=== PATIENT | male | born 1975 | race Caucasian/White ===

== ENCOUNTER 2017-04-18 20:04 | Emergency (ER) | payer MEDICAID ==
[~2017-04-18] VITALS: Ht 195.6 cm; Wt 63.6 kg
[~2017-04-18 20:04] MED LIST: ATEN-187 PO
[2017-04-18] MEDS ORDERED: LIB25 PO (20:17)
[2017-04-18] MEDS ORDERED: PROM25 PO (20:17)
[2017-04-18 20:49] LABS: BASOPHILS % (AUTO) 0.7 % (0.0-2.0); EOSINOPHILS % (AUTO) 0.5 % (1.0-6.0); HEMATOCRIT 44.9 % (41-53); HEMOGLOBIN 15.4 g/dL (13.5-17.5); LYMPHOCYTES # (AUTO) 2.5 K/uL (1.0-4.8); LYMPHOCYTES % (AUTO) 36.7 % (22.0-44.0); MEAN CORPUSCULAR HEMOGLOBIN 33.9 pg (26.0-34.0); MEAN CORPUSCULAR HGB CONC 34.3 G/dL (31.0-37.0); MEAN CORPUSCULAR VOLUME 99 fL (80-100); MONOCYTES # (AUTO) 0.6 K/uL (0.1-1.0); NEUTROPHILS # (AUTO) 3.6 K/uL (1.8-7.7); NEUTROPHILS % (AUTO) 53.1 % (40.0-70.0); PLATELET COUNT (AUTO) 275 K/uL (150-450); RED BLOOD CELL COUNT(AUTO) 4.55 MIL/uL (4.50-5.90); RED CELL DISTRIBUTION WIDTH 15.4 % (11.5-14.5); WHITE BLOOD COUNT (AUTO) 6.9 K/uL (4.5-11.0)
[2017-04-18 20:55] LABS: ANION GAP 10 mmol/L (8-16); CALCIUM, TOTAL 8.4 mg/dL (8.8-10.5); CARBON DIOXIDE 32 mmol/L (22-29); CHLORIDE 106 mmol/L (98-107); CREATININE 0.72 mg/dL (0.60-1.30); GLOMERULAR FILTR. RATE CALC > 60 mL/min (>60); POTASSIUM 3.8 mmol/L (3.5-5.1); SODIUM SERUM 148 mmol/L (136-145); UREA NITROGEN, BLOOD 2 mg/dL (7-18)
[2017-04-18] MEDS ORDERED: MAGNESIUM SULFATE 2 GM, MVI, ADULT NO.1 WITH VIT K 10 ML, THIAMINE HCL 100 MG, FOLIC AC... IV ONE ×5 (21:00)
[2017-04-18] MEDS ORDERED: ChlordiazePOXIDE HCL 25 MG CAPSULE PO ONE (21:00)
[2017-04-18 21:01] LABS: ALANINE AMINOTRANSFERASE 64 U/L (12-78); ALBUMIN 3.7 g/dL (3.4-5.0); ASPARTATE AMINOTRANSFERASE 57 U/L (15-37); BILIRUBIN,TOTAL 0.5 mg/dL (0.1-1.0); TOTAL PROTEIN, SERUM 7.2 g/dL (6.4-8.2)
[2017-04-18 21:56] VITALS: BP 134/94
== END 2017-04-18 22:36 | disposition home or self-care (01) ==
LOC: EMS 20:05
DX: F10.129 Alcohol abuse with intoxication, unspecified (principal); I10 Essential (primary) hypertension; I45.6 Pre-excitation syndrome; F17.210 Nicotine dependence, cigarettes, uncomplicated
CPT/HCPCS: 36415; 80053; 85025; 96365; 99284; G0480; J3411; J3475; J3490 ×2; J7030

== ENCOUNTER 2017-04-19 19:04 | Emergency (ER) | payer MEDICAID ==
[~2017-04-19] VITALS: Ht 195.6 cm; Wt 68.2 kg
[~2017-04-19 19:04] MED LIST changes: +LIB25 PO; +PROM25 PO
[2017-04-19 20:31] LABS: BASOPHILS % (AUTO) 0.3 % (0.0-2.0); EOSINOPHILS % (AUTO) 0.7 % (1.0-6.0); HEMATOCRIT 40.3 % (41-53); HEMOGLOBIN 13.9 g/dL (13.5-17.5); LYMPHOCYTES # (AUTO) 1.1 K/uL (1.0-4.8); LYMPHOCYTES % (AUTO) 19.9 % (22.0-44.0); MEAN CORPUSCULAR HEMOGLOBIN 34.2 pg (26.0-34.0); MEAN CORPUSCULAR HGB CONC 34.4 G/dL (31.0-37.0); MEAN CORPUSCULAR VOLUME 99 fL (80-100); MONOCYTES # (AUTO) 0.5 K/uL (0.1-1.0); MONOCYTES % (AUTO) 8.5 % (2.0-9.0); NEUTROPHILS % (AUTO) 70.6 % (40.0-70.0); PLATELET COUNT (AUTO) 211 K/uL (150-450); RED BLOOD CELL COUNT(AUTO) 4.06 MIL/uL (4.50-5.90); RED CELL DISTRIBUTION WIDTH 14.5 % (11.5-14.5); WHITE BLOOD COUNT (AUTO) 5.7 K/uL (4.5-11.0)
[2017-04-19 20:40] LABS: ANION GAP 8 mmol/L (8-16); CALCIUM, TOTAL 8.9 mg/dL (8.8-10.5); CARBON DIOXIDE 30 mmol/L (22-29); CHLORIDE 105 mmol/L (98-107); CREATININE 0.64 mg/dL (0.60-1.30); GLOMERULAR FILTR. RATE CALC > 60 mL/min (>60); POTASSIUM 3.5 mmol/L (3.5-5.1); SODIUM SERUM 143 mmol/L (136-145); UREA NITROGEN, BLOOD 3 mg/dL (7-18)
[2017-04-19] MEDS ORDERED: PHENobarbital 30 MG TABLET PO ONE (20:45)
[2017-04-19 20:47] VITALS: BP 132/93
[2017-04-19 20:47] LABS: ALANINE AMINOTRANSFERASE 59 U/L (12-78); ALBUMIN 3.5 g/dL (3.4-5.0); ASPARTATE AMINOTRANSFERASE 43 U/L (15-37); BILIRUBIN,TOTAL 0.8 mg/dL (0.1-1.0); TOTAL PROTEIN, SERUM 6.8 g/dL (6.4-8.2)
== END 2017-04-19 21:11 | disposition home or self-care (01) ==
LOC: EMS 19:05
DX: F10.239 Alcohol dependence with withdrawal, unspecified (principal); I10 Essential (primary) hypertension; I45.6 Pre-excitation syndrome; F17.210 Nicotine dependence, cigarettes, uncomplicated
CPT/HCPCS: 36415; 80053; 85025; 93005; 99285; G0480

== ENCOUNTER 2017-04-20 17:02 | Inpatient (IN) | payer MEDICAID ==
[~2017-04-20] VITALS: Ht 190.5 cm; Wt 78.3 kg
[~2017-04-20 17:02] MED LIST changes: -ATEN-187 PO; -PROM25 PO
[2017-04-20 17:29] LABS: BASOPHILS % (AUTO) 0.4 % (0.0-2.0); EOSINOPHILS % (AUTO) 0.6 % (1.0-6.0); HEMATOCRIT 46.4 % (41-53); HEMOGLOBIN 16.1 g/dL (13.5-17.5); LYMPHOCYTES # (AUTO) 1.2 K/uL (1.0-4.8); LYMPHOCYTES % (AUTO) 16.1 % (22.0-44.0); MEAN CORPUSCULAR HEMOGLOBIN 34.2 pg (26.0-34.0); MEAN CORPUSCULAR HGB CONC 34.6 G/dL (31.0-37.0); MEAN CORPUSCULAR VOLUME 99 fL (80-100); MONOCYTES # (AUTO) 0.5 K/uL (0.1-1.0); MONOCYTES % (AUTO) 6.3 % (2.0-9.0); NEUTROPHILS # (AUTO) 5.8 K/uL (1.8-7.7); NEUTROPHILS % (AUTO) 76.6 % (40.0-70.0); PLATELET COUNT (AUTO) 259 K/uL (150-450); RED CELL DISTRIBUTION WIDTH 14.4 % (11.5-14.5); WHITE BLOOD COUNT (AUTO) 7.5 K/uL (4.5-11.0)
[2017-04-20 17:52] LABS: ALANINE AMINOTRANSFERASE 71 U/L (12-78); ALBUMIN 4.1 g/dL (3.4-5.0); ANION GAP 12 mmol/L (8-16); ASPARTATE AMINOTRANSFERASE 51 U/L (15-37); BILIRUBIN,TOTAL 0.9 mg/dL (0.1-1.0); CALCIUM, TOTAL 8.9 mg/dL (8.8-10.5); CARBON DIOXIDE 28 mmol/L (22-29); CHLORIDE 101 mmol/L (98-107); CREATININE 0.81 mg/dL (0.60-1.30); GLOMERULAR FILTR. RATE CALC > 60 mL/min (>60); POTASSIUM 3.5 mmol/L (3.5-5.1); SODIUM SERUM 141 mmol/L (136-145); TOTAL PROTEIN, SERUM 8.1 g/dL (6.4-8.2); UREA NITROGEN, BLOOD 5 mg/dL (7-18)
[2017-04-20] MEDS ORDERED: LORazepam 2 MG TABLET PO ONE (19:00)
[2017-04-20] MEDS: LORazepam 2 MG TABLET PO PRN (23:22)
[2017-04-21] MEDS: ZOLPIDEM TARTRATE 10 MG TABLET PO PRN ×2 (00:39→21:26)
[2017-04-21] MEDS: LORazepam 2 MG TABLET PO PRN ×4 (06:26→23:25)
[2017-04-21 09:30] LABS: CHOL/HDL RATIO 1.9 (4.2-7.3)
[2017-04-21] MEDS: HALOPERIDOL 5 MG TABLET PO PRN ×2 (09:37→17:17)
[2017-04-21 11:15] VITALS: BP 123/82
[2017-04-21 20:15] VITALS: BP 116/64
[2017-04-22] MEDS: HALOPERIDOL 5 MG TABLET PO PRN ×3 (00:29→20:18)
[2017-04-22 00:45] VITALS: BP 120/78
[2017-04-22] MEDS ORDERED: INFLUENZA VIRUS VACCINE QVS 2017-18 (3YR+)/PF 60 MCG/0.5 ML SYRINGE IM ONE (03:00)
[2017-04-22 08:25] VITALS: BP 125/76
[2017-04-22] MEDS: SERTRALINE HCL 50 MG TABLET PO SCH (08:27)
[2017-04-22] MEDS: LORazepam 2 MG TABLET PO PRN ×4 (08:34→23:56)
[2017-04-22] MEDS ORDERED: ACETAMINOPHEN 325 MG TABLET PO PRN (12:45)
[2017-04-22 12:58] VITALS: BP 115/68
[2017-04-22] MEDS: IBUPROFEN 600 MG TABLET PO PRN (12:58)
[2017-04-22] MEDS: NICOTINE 21 MG/24 HOUR PATCH TD SCH (13:00)
[2017-04-22 16:36] VITALS: BP 122/89
[2017-04-22] MEDS: ZOLPIDEM TARTRATE 10 MG TABLET PO PRN (20:18)
[2017-04-23 00:21] VITALS: BP 115/82
[2017-04-23] MEDS: IBUPROFEN 600 MG TABLET PO PRN ×2 (00:21→15:45)
[2017-04-23] MEDS: LORazepam 2 MG TABLET PO PRN ×3 (07:25→16:30)
[2017-04-23] MEDS: HALOPERIDOL 5 MG TABLET PO PRN ×3 (07:25→16:30)
[2017-04-23 08:00] VITALS: BP 124/77
[2017-04-23] MEDS: SERTRALINE HCL 50 MG TABLET PO SCH (08:04)
[2017-04-23] MEDS: NICOTINE 21 MG/24 HOUR PATCH TD SCH (08:04)
[2017-04-23 12:30] VITALS: BP 130/82
[2017-04-23 15:46] VITALS: BP 121/78
[2017-04-23 16:06] VITALS: BP 121/78
[2017-04-23] MEDS: ZOLPIDEM TARTRATE 10 MG TABLET PO PRN (20:25)
[2017-04-24 00:01] VITALS: BP 131/96
[2017-04-24] MEDS: LORazepam 2 MG TABLET PO PRN ×4 (00:03→17:38)
[2017-04-24] MEDS: SERTRALINE HCL 50 MG TABLET PO SCH (08:34)
[2017-04-24] MEDS: HALOPERIDOL 5 MG TABLET PO PRN ×3 (08:36→23:36)
[2017-04-24] MEDS: NICOTINE 21 MG/24 HOUR PATCH TD SCH (08:38)
[2017-04-24 09:25] VITALS: BP 127/78
[2017-04-24 17:09] VITALS: BP 124/68
[2017-04-24] MEDS: ZOLPIDEM TARTRATE 10 MG TABLET PO PRN (23:36)
[2017-04-25] VITALS (8 sets, daily range): BP systolic 109–141; BP diastolic 62–96
[2017-04-25] MEDS: LORazepam 2 MG TABLET PO PRN ×6 (00:51→22:46)
[2017-04-25] MEDS: SERTRALINE HCL 50 MG TABLET PO SCH (08:18)
[2017-04-25] MEDS: NICOTINE 21 MG/24 HOUR PATCH TD SCH (08:23)
[2017-04-25] MEDS: HALOPERIDOL 5 MG TABLET PO PRN ×3 (08:40→19:31)
[2017-04-25] MEDS: IBUPROFEN 600 MG TABLET PO PRN (15:58)
[2017-04-25] MEDS ORDERED: LORazepam 2 MG/ML VIAL IM ONE (16:30)
[2017-04-25] MEDS ORDERED: LORazepam 2 MG/ML VIAL ONE (16:31)
[2017-04-25] MEDS ORDERED: LOPERAMIDE HCL 2 MG CAPSULE PO PRN (16:45)
[2017-04-25] MEDS ORDERED: GuaiFENesin/D-METHORPHAN [SUGAR-FREE] 200-20MG/10 ML SYRUP UDCUP PO PRN (16:45)
[2017-04-25] MEDS ORDERED: CYANOCOBALAMIN 1,000 MCG/ML VIAL IM ONE (16:45)
[2017-04-25] MEDS: THIAMINE HCL 100 MG TABLET PO SCH (17:06)
[2017-04-26] VITALS (9 sets, daily range): BP systolic 116–140; BP diastolic 73–94
[2017-04-26] MEDS ORDERED: LORazepam 2 MG TABLET PO PRN (07:00)
[2017-04-26] MEDS: LORazepam 2 MG TABLET PO SCH ×5 (07:48→20:35)
[2017-04-26] MEDS: LORazepam 2 MG TABLET PO PRN (07:49)
[2017-04-26] MEDS: HALOPERIDOL 5 MG TABLET PO PRN ×3 (07:50→20:35)
[2017-04-26] MEDS: THIAMINE HCL 100 MG TABLET PO SCH ×2 (08:01→16:06)
[2017-04-26] MEDS: MULTIVITAMINS WITH MINERALS, THERAPEUTIC TABLET PO SCH (08:01)
[2017-04-26] MEDS: FOLIC ACID 1 MG TABLET PO SCH (08:02)
[2017-04-26] MEDS: NICOTINE 21 MG/24 HOUR PATCH TD SCH (08:02)
[2017-04-26] MEDS: SERTRALINE HCL 50 MG TABLET PO SCH (08:07)
[2017-04-26] MEDS ORDERED: PROMETHAZINE HCL 25 MG/ML VIAL IM PRN (19:30)
[2017-04-26] MEDS ORDERED: ONDANSETRON HCL 4 MG TABLET PO PRN (19:30)
[2017-04-27] VITALS (8 sets, daily range): BP systolic 102–136; BP diastolic 53–86
[2017-04-27] MEDS: MULTIVITAMINS WITH MINERALS, THERAPEUTIC TABLET PO SCH (08:23)
[2017-04-27] MEDS: FOLIC ACID 1 MG TABLET PO SCH (08:23)
[2017-04-27] MEDS: LORazepam 2 MG TABLET PO SCH ×4 (08:23→20:09)
[2017-04-27] MEDS: THIAMINE HCL 100 MG TABLET PO SCH ×2 (08:23→16:32)
[2017-04-27] MEDS: SERTRALINE HCL 50 MG TABLET PO SCH (08:24)
[2017-04-27] MEDS: NICOTINE 21 MG/24 HOUR PATCH TD SCH (08:24)
[2017-04-27] MEDS: ZOLPIDEM TARTRATE 10 MG TABLET PO PRN (21:06)
[2017-04-27] MEDS: HALOPERIDOL 5 MG TABLET PO PRN (21:40)
[2017-04-28 00:08] VITALS: BP 110/68
[2017-04-28 00:30] VITALS: BP 110/68
[2017-04-28 04:30] VITALS: BP 105/54
[2017-04-28] MEDS: THIAMINE HCL 100 MG TABLET PO SCH ×2 (08:05→16:10)
[2017-04-28] MEDS: FOLIC ACID 1 MG TABLET PO SCH (08:05)
[2017-04-28] MEDS: MULTIVITAMINS WITH MINERALS, THERAPEUTIC TABLET PO SCH (08:05)
[2017-04-28] MEDS: LORazepam 1 MG TABLET PO SCH ×4 (08:05→20:51)
[2017-04-28] MEDS: SERTRALINE HCL 50 MG TABLET PO SCH (08:05)
[2017-04-28] MEDS: NICOTINE 21 MG/24 HOUR PATCH TD SCH (08:06)
[2017-04-28 09:53] VITALS: BP 99/59
[2017-04-28 10:38] VITALS: BP 99/59
[2017-04-28] MEDS: HALOPERIDOL 5 MG TABLET PO PRN ×2 (12:28→18:21)
[2017-04-28] MEDS: LORazepam 1 MG TABLET PO PRN ×2 (18:24→22:46)
[2017-04-28] MEDS: ZOLPIDEM TARTRATE 10 MG TABLET PO PRN (20:56)
[2017-04-28 21:11] VITALS: BP 106/72
[2017-04-29 06:59] VITALS: BP 111/60
[2017-04-29] MEDS: LORazepam 1 MG TABLET PO PRN ×3 (08:38→17:55)
[2017-04-29] MEDS: FOLIC ACID 1 MG TABLET PO SCH (08:38)
[2017-04-29] MEDS: SERTRALINE HCL 50 MG TABLET PO SCH (08:38)
[2017-04-29] MEDS: MULTIVITAMINS WITH MINERALS, THERAPEUTIC TABLET PO SCH (08:38)
[2017-04-29] MEDS: THIAMINE HCL 100 MG TABLET PO SCH ×2 (08:38→16:00)
[2017-04-29] MEDS: NICOTINE 21 MG/24 HOUR PATCH TD SCH (08:55)
[2017-04-29 09:13] VITALS: BP 107/64
[2017-04-29 16:55] VITALS: BP 117/78
[2017-04-29] MEDS: HALOPERIDOL 5 MG TABLET PO PRN (20:05)
[2017-04-29] MEDS: HydrOXYzine PAMOATE 50 MG CAPSULE PO PRN (21:44)
[2017-04-29] MEDS: ZOLPIDEM TARTRATE 10 MG TABLET PO PRN (21:47)
[2017-04-30] MEDS: SERTRALINE HCL 50 MG TABLET PO SCH (08:40)
[2017-04-30] MEDS: FOLIC ACID 1 MG TABLET PO SCH (08:40)
[2017-04-30] MEDS: MULTIVITAMINS WITH MINERALS, THERAPEUTIC TABLET PO SCH (08:40)
[2017-04-30] MEDS: THIAMINE HCL 100 MG TABLET PO SCH ×2 (08:40→17:18)
[2017-04-30] MEDS: NICOTINE 21 MG/24 HOUR PATCH TD SCH (08:43)
[2017-04-30] MEDS: HydrOXYzine PAMOATE 50 MG CAPSULE PO PRN ×2 (08:44→14:52)
[2017-04-30 08:48] VITALS: BP 125/84
[2017-04-30] MEDS ORDERED: HydrOXYzine PAMOATE 50 MG CAPSULE PO PRN (19:30)
[2017-04-30] MEDS: HALOPERIDOL 5 MG TABLET PO PRN (20:25)
[2017-04-30] MEDS: LORazepam 2 MG TABLET PO PRN (20:25)
[2017-04-30 22:28] VITALS: BP 132/88
[2017-05-01 05:51] VITALS: BP 123/81
[2017-05-01 08:26] VITALS: BP 112/75
[2017-05-01] MEDS: NICOTINE 21 MG/24 HOUR PATCH TD SCH (09:00)
[2017-05-01] MEDS: LORazepam 2 MG TABLET PO PRN (09:01)
[2017-05-01] MEDS: FOLIC ACID 1 MG TABLET PO SCH (09:01)
[2017-05-01] MEDS: MULTIVITAMINS WITH MINERALS, THERAPEUTIC TABLET PO SCH (09:01)
[2017-05-01] MEDS: SERTRALINE HCL 50 MG TABLET PO SCH (09:01)
[2017-05-01] MEDS: HALOPERIDOL 5 MG TABLET PO PRN (09:01)
[2017-05-01] MEDS: THIAMINE HCL 100 MG TABLET PO SCH (09:01)
[2017-05-01] MEDS ORDERED: SERT50TA12 PO (10:49)
== END 2017-05-01 14:00 | disposition home or self-care (01) | DRG 750 ==
LOC: EMS 17:04 → AHU 04-21 08:03 → 3EI 04-22 00:06
PROVIDERS: ADMIT Psychiatry & Neurology Psychiatry; ATTEND Psychiatry & Neurology Child & Adolescent Psychiatry
PROC: 3E0234Z Introduction of Serum, Toxoid and Vaccine into Muscle, Percutaneous Approach (ICD-10-PCS; principal; 2017-04-22)
DX: F25.0 Schizoaffective disorder, bipolar type (principal); F32.2 Major depressive disorder, single episode, severe without psychotic features; R45.851 Suicidal ideations; I10 Essential (primary) hypertension; S61.511A Laceration without foreign body of right wrist, initial encounter; I45.6 Pre-excitation syndrome; Z87.891 Personal history of nicotine dependence; W45.8XXA Other foreign body or object entering through skin, initial encounter; Y93.89 Activity, other specified; Y92.89 Other specified places as the place of occurrence of the external cause; Y99.8 Other external cause status; Z23 Encounter for immunization
CPT/HCPCS: 87081; 90471; 99285; G0480; J2060; J3420

== ENCOUNTER 2020-04-12 22:16 | Emergency (ER) | payer MEDICAID, OTHER ==
[~2020-04-12] VITALS: Ht 195.6 cm; Wt 77.3 kg
[~2020-04-12 22:16] MED LIST changes: -LIB25 PO; +SERT50TA12 PO
[2020-04-12] MEDS ORDERED: SODIUM CHLORIDE 0.9% 1,000 ML IV ONE (22:45)
[2020-04-12] MEDS ORDERED: ONDANSETRON HCL 4 MG/2 ML VIAL IVP ONE (23:15)
[2020-04-12 23:19] LABS: BASOPHILS % (AUTO) 0.5 % (0.0-2.0); EOSINOPHILS % (AUTO) 0.9 % (1.0-6.0); HEMOGLOBIN 14.2 g/dL (13.5-17.5); LYMPHOCYTES % (AUTO) 28.7 % (22.0-44.0); MEAN CORPUSCULAR HEMOGLOBIN 32.1 pg (26.0-34.0); MEAN CORPUSCULAR HGB CONC 34.7 G/dL (31.0-37.0); MEAN CORPUSCULAR VOLUME 93 fL (80-100); MONOCYTES # (AUTO) 0.5 K/uL (0.1-1.0); MONOCYTES % (AUTO) 7.6 % (2.0-9.0); NEUTROPHILS # (AUTO) 4.4 K/uL (1.8-7.7); NEUTROPHILS % (AUTO) 62.3 % (40.0-70.0); PLATELET COUNT (AUTO) 297 K/uL (150-450); RED BLOOD CELL COUNT(AUTO) 4.43 MIL/uL (4.50-5.90); RED CELL DISTRIBUTION WIDTH 13.2 % (11.5-14.5)
[2020-04-12 23:31] LABS: ANION GAP 6 mmol/L (8-16); CALCIUM, TOTAL 9.6 mg/dL (8.8-10.5); CARBON DIOXIDE 28 mmol/L (22-29); CHLORIDE 100 mmol/L (98-107); CREATININE 0.94 mg/dL (0.60-1.30); GLOMERULAR FILTR. RATE CALC > 60 mL/min (>60); GLUCOSE,RANDOM 91 mg/dL (70-110); POTASSIUM 3.5 mmol/L (3.5-5.1); SODIUM SERUM 134 mmol/L (136-145); UREA NITROGEN, BLOOD 14 mg/dL (7-18)
[2020-04-12 23:37] LABS: INR 1.1 (0.9-1.1); PROTHROMBIN TIME 11.2 SEC (9.4-11.6)
[2020-04-12 23:50] LABS: SALICYLATE < 2.8 mg/dL (2.8-20.0)
[2020-04-12 23:56] LABS: ALANINE AMINOTRANSFERASE 23 U/L (12-78); ALBUMIN 4.3 g/dL (3.4-5.0); ALKALINE PHOSPHATASE 76 U/L (46-116); ASPARTATE AMINOTRANSFERASE 16 U/L (15-37); BILIRUBIN,TOTAL 0.5 mg/dL (0.1-1.0); CREATINE KINASE, TOTAL ONLY 94 U/L (39-308); TOTAL PROTEIN, SERUM 7.6 g/dL (6.4-8.2)
[2020-04-12 23:57] LABS: ACETAMINOPHEN < 2 mcg/mL (10-30)
[2020-04-12 23:59] LABS: B-TYPE NATRIURETIC PEPTIDE 12 pg/mL (0-100)
[2020-04-13 01:29] LABS: APPEARANCE,URINE CLEAR (CLEAR); BILIRUBIN,URINE NEGATIVE (NEGATIVE); GLUCOSE, URINE (UA) NEGATIVE (NEGATIVE); KETONES,URINE NEGATIVE (NEGATIVE); LEUKOCYTE ESTERASE ,URINE NEGATIVE (NEGATIVE); NITRATE,URINE NEGATIVE (NEGATIVE); OCCULT BLOOD,URINE NEGATIVE (NEGATIVE); PH,URINE 6.5 (5.0-8.0); PROTEIN,URINE NEGATIVE (NEGATIVE); UROBILINOGEN,URINE 0.2 mg/dL (<=1.0)
[2020-04-13 02:35] VITALS: BP 125/80
== END 2020-04-13 02:44 | disposition home or self-care (01) ==
LOC: EMS 22:17
DX: T40.4X1A Poisoning by other synthetic narcotics, accidental (unintentional), initial encounter (principal); Y92.89 Other specified places as the place of occurrence of the external cause
CPT/HCPCS: 36415; 71045; 80053; 81003; 82550; 83880; 84484; 85025; 85610; 85730; 93005; 96361; 96374; 99291; G0480; J2405; J7030; G0481

== ENCOUNTER 2020-07-01 10:01 | Emergency (ER) | payer OTHER ==
[~2020-07-01] VITALS: Ht 195.6 cm; Wt 81.8 kg
[2020-07-01] MEDS ORDERED: ATEN-73 PO (10:08)
[2020-07-01] MEDS ORDERED: GABA-1181 PO (10:08)
[2020-07-01 10:41] LABS: BASOPHILS % (AUTO) 0.4 % (0.0-2.0); EOSINOPHILS % (AUTO) 0.2 % (1.0-6.0); HEMATOCRIT 38.6 % (41-53); HEMOGLOBIN 13.3 g/dL (13.5-17.5); LYMPHOCYTES # (AUTO) 1.7 K/uL (1.0-4.8); MEAN CORPUSCULAR HEMOGLOBIN 32.2 pg (26.0-34.0); MEAN CORPUSCULAR HGB CONC 34.5 G/dL (31.0-37.0); MEAN CORPUSCULAR VOLUME 93 fL (80-100); MONOCYTES # (AUTO) 0.5 K/uL (0.1-1.0); MONOCYTES % (AUTO) 5.7 % (2.0-9.0); NEUTROPHILS # (AUTO) 6.2 K/uL (1.8-7.7); NEUTROPHILS % (AUTO) 73.7 % (40.0-70.0); PLATELET COUNT (AUTO) 277 K/uL (150-450); RED BLOOD CELL COUNT(AUTO) 4.14 MIL/uL (4.50-5.90); RED CELL DISTRIBUTION WIDTH 13.1 % (11.5-14.5)
[2020-07-01 10:54] LABS: ANION GAP 12 mmol/L (8-16); CALCIUM, TOTAL 8.6 mg/dL (8.8-10.5); CARBON DIOXIDE 25 mmol/L (22-29); CHLORIDE 101 mmol/L (98-107); CREATININE 0.95 mg/dL (0.60-1.30); GLOMERULAR FILTR. RATE CALC > 60 mL/min (>60); GLUCOSE,RANDOM 92 mg/dL (70-110); POTASSIUM 4.3 mmol/L (3.5-5.1); SODIUM SERUM 138 mmol/L (136-145); UREA NITROGEN, BLOOD 7 mg/dL (7-18)
[2020-07-01 10:59] LABS: ALANINE AMINOTRANSFERASE 39 U/L (12-78); ALBUMIN 4.1 g/dL (3.4-5.0); ALKALINE PHOSPHATASE 84 U/L (46-116); ASPARTATE AMINOTRANSFERASE 58 U/L (15-37); BILIRUBIN,TOTAL 0.6 mg/dL (0.1-1.0); TOTAL PROTEIN, SERUM 7.4 g/dL (6.4-8.2)
[2020-07-01 11:09] LABS: B-TYPE NATRIURETIC PEPTIDE 49 pg/mL (0-100)
[2020-07-01 12:06] LABS: COVID AG,FIA SOURCE NASOPHARYNGEAL
[2020-07-01 12:38] VITALS: BP 135/85
== END 2020-07-01 12:40 | disposition home or self-care (01) ==
LOC: EMS 10:01
DX: R07.9 Chest pain, unspecified (principal); R05 Cough; R06.00 Dyspnea, unspecified; Z20.828 Contact with and (suspected) exposure to other viral communicable diseases
CPT/HCPCS: 36415; 71045; 80053; 83880; 84484; 85025; 87426; 93005; 99285; U0003

== ENCOUNTER 2020-09-20 22:22 | Inpatient (IN) | payer MEDICAID, OTHER ==
[~2020-09-20] VITALS: Ht 195.6 cm; Wt 74.4 kg
[~2020-09-20 22:22] MED LIST changes: +ATEN-73 PO; +GABA-1181 PO; +SERT-158 PO; -SERT50TA12 PO
[2020-09-20 23:30] LABS: BASOPHILS % (AUTO) 0.3 % (0.0-2.0); EOSINOPHILS % (AUTO) 0 % (1.0-6.0); HEMATOCRIT 50.6 % (41-53); HEMOGLOBIN 16.7 g/dL (13.5-17.5); LYMPHOCYTES # (AUTO) 1.3 K/uL (1.0-4.8); LYMPHOCYTES % (AUTO) 10.5 % (22.0-44.0); MEAN CORPUSCULAR HEMOGLOBIN 32.7 pg (26.0-34.0); MEAN CORPUSCULAR VOLUME 99 fL (80-100); MONOCYTES # (AUTO) 0.6 K/uL (0.1-1.0); MONOCYTES % (AUTO) 4.6 % (2.0-9.0); NEUTROPHILS # (AUTO) 10.3 K/uL (1.8-7.7); NEUTROPHILS % (AUTO) 84.6 % (40.0-70.0); PLATELET COUNT (AUTO) 353 K/uL (150-450); RED CELL DISTRIBUTION WIDTH 14.4 % (11.5-14.5)
[2020-09-20 23:44] LABS: ANION GAP 14 mmol/L (8-16); CARBON DIOXIDE 28 mmol/L (22-29); CHLORIDE 99 mmol/L (98-107); CREATININE 0.72 mg/dL (0.60-1.30); GLOMERULAR FILTR. RATE CALC > 60 mL/min (>60); GLUCOSE,RANDOM 88 mg/dL (70-110); POTASSIUM 3.9 mmol/L (3.5-5.1); SODIUM SERUM 141 mmol/L (136-145); UREA NITROGEN, BLOOD 2 mg/dL (7-18)
[2020-09-20 23:50] LABS: ALANINE AMINOTRANSFERASE 50 U/L (12-78); ALBUMIN 4.8 g/dL (3.4-5.0); ALKALINE PHOSPHATASE 115 U/L (46-116); ASPARTATE AMINOTRANSFERASE 31 U/L (15-37); BILIRUBIN,TOTAL 0.3 mg/dL (0.1-1.0); TOTAL PROTEIN, SERUM 9.2 g/dL (6.4-8.2)
[2020-09-20 23:52] LABS: ACETAMINOPHEN < 2 mcg/mL (10-30)
[2020-09-20 23:56] LABS: COVID AG,FIA SOURCE NASOPHARYNGEAL
[2020-09-21 01:12] LABS: SALICYLATE 1.1 mg/dL (2.8-20.0)
[2020-09-21 04:22] VITALS: BP 131/80
[2020-09-21] MEDS ORDERED: ZOLPIDEM TARTRATE 10 MG TABLET PO PRN (04:30)
[2020-09-21] MEDS ORDERED: LORazepam 2 MG TABLET ONE (04:32)
[2020-09-21] MEDS: LORazepam 2 MG TABLET PO PRN ×4 (04:33→18:37)
[2020-09-21] MEDS ORDERED: BACITRACIN 28 GM OINTMENT TP PRN (06:15)
[2020-09-21] MEDS ORDERED: IBUPROFEN 600 MG TABLET PO PRN (06:15)
[2020-09-21] MEDS ORDERED: CloNIDine HCL 0.1 MG TABLET PO PRN (06:15)
[2020-09-21] MEDS ORDERED: MAG HYDROX/AL HYDROX/SIMETH ES 30 ML SUSPENSION UDCUP PO PRN (06:15)
[2020-09-21] MEDS ORDERED: ACETAMINOPHEN 325 MG TABLET PO PRN (06:15)
[2020-09-21] MEDS ORDERED: LOPERAMIDE HCL 2 MG CAPSULE PO PRN (06:15)
[2020-09-21] MEDS ORDERED: ALBUTEROL SULFATE HFA 90 MCG/PUFF 8 GM INHALER IH PRN (06:15)
[2020-09-21] MEDS ORDERED: OMEPRAZOLE 20 MG CAPSULE PO PRN (06:15)
[2020-09-21] MEDS ORDERED: BENZOCAINE/MENTHOL LOZENGE PO PRN (06:15)
[2020-09-21] MEDS ORDERED: PETROLATUM,WHITE 28 GM JELLY TP PRN (06:15)
[2020-09-21] MEDS ORDERED: MAGNESIUM HYDROXIDE SUSPENSION 30 ML UDCUP PO PRN (06:15)
[2020-09-21] MEDS ORDERED: DOCUSATE SODIUM 100 MG CAPSULE PO PRN (06:15)
[2020-09-21 09:12] VITALS: BP 123/77
[2020-09-21] MEDS: ATENOLOL 50 MG TABLET PO SCH (11:42)
[2020-09-21 11:46] VITALS: BP 122/62
[2020-09-21 16:31] VITALS: BP 124/76
[2020-09-22 05:09] VITALS: BP 112/90
[2020-09-22] MEDS: LORazepam 2 MG TABLET PO PRN ×4 (05:09→20:40)
[2020-09-22 09:41] VITALS: BP 126/80
[2020-09-22] MEDS: ATENOLOL 50 MG TABLET PO SCH (09:42)
[2020-09-22] MEDS: GABAPENTIN 300 MG CAPSULE PO SCH ×3 (09:42→16:16)
[2020-09-22] MEDS: ESCITALOPRAM OXALATE 20 MG TABLET PO SCH (09:42)
[2020-09-22] MEDS: NICOTINE 21 MG/24 HOUR PATCH TD SCH ×2 (09:43→09:44)
[2020-09-22] MEDS: HALOPERIDOL 5 MG TABLET PO PRN ×2 (16:16→20:40)
[2020-09-22 16:35] VITALS: BP 119/66
[2020-09-23 05:10] VITALS: BP 126/83
[2020-09-23] MEDS: LORazepam 2 MG TABLET PO PRN ×3 (05:25→21:30)
[2020-09-23 08:00] VITALS: BP 123/80
[2020-09-23] MEDS: ATENOLOL 50 MG TABLET PO SCH (08:41)
[2020-09-23] MEDS: NICOTINE 21 MG/24 HOUR PATCH TD SCH (08:41)
[2020-09-23] MEDS: ESCITALOPRAM OXALATE 20 MG TABLET PO SCH (08:41)
[2020-09-23] MEDS: GABAPENTIN 300 MG CAPSULE PO SCH ×3 (08:41→17:52)
[2020-09-23 16:24] VITALS: BP 110/63
[2020-09-23] MEDS: TraZODone HCL 100 MG TABLET PO SCH (21:30)
[2020-09-24 08:00] VITALS: BP 127/91
[2020-09-24] MEDS: GABAPENTIN 300 MG CAPSULE PO SCH ×3 (08:31→16:29)
[2020-09-24] MEDS: ATENOLOL 50 MG TABLET PO SCH (08:32)
[2020-09-24] MEDS: ESCITALOPRAM OXALATE 20 MG TABLET PO SCH (08:32)
[2020-09-24] MEDS: NICOTINE 21 MG/24 HOUR PATCH TD SCH (08:33)
[2020-09-24] MEDS: ONDANSETRON HCL 4 MG TABLET PO PRN (10:49)
[2020-09-24] MEDS: LORazepam 2 MG TABLET PO PRN ×2 (10:49→16:32)
[2020-09-24 16:00] VITALS: BP 120/84
[2020-09-24] MEDS: HALOPERIDOL 5 MG TABLET PO PRN (16:32)
[2020-09-24] MEDS: TraZODone HCL 100 MG TABLET PO SCH (20:11)
[2020-09-25] MEDS: ONDANSETRON HCL 4 MG TABLET PO PRN (08:12)
[2020-09-25] MEDS: LORazepam 2 MG TABLET PO PRN (08:12)
[2020-09-25] MEDS: ESCITALOPRAM OXALATE 20 MG TABLET PO SCH (08:12)
[2020-09-25] MEDS: ATENOLOL 50 MG TABLET PO SCH (08:12)
[2020-09-25] MEDS: GABAPENTIN 300 MG CAPSULE PO SCH ×2 (08:12→12:40)
[2020-09-25] MEDS: NICOTINE 21 MG/24 HOUR PATCH TD SCH ×2 (08:23→09:38)
[2020-09-25 08:56] VITALS: BP 131/68
[2020-09-25] MEDS ORDERED: ESCI20TA87 PO (12:47)
[2020-09-25] MEDS ORDERED: TRAZ-257 PO (12:49)
== END 2020-09-25 13:27 | disposition home or self-care (01) | DRG 754 ==
LOC: EMS 22:22 → 3EI 09-21 01:00
PROVIDERS: ADMIT Psychiatry & Neurology Psychiatry; ATTEND Psychiatry & Neurology Psychiatry
DX: F32.9 Major depressive disorder, single episode, unspecified (principal); F41.9 Anxiety disorder, unspecified; Z91.5 Personal history of self-harm; I10 Essential (primary) hypertension; G47.00 Insomnia, unspecified; B19.20 Unspecified viral hepatitis C without hepatic coma; G40.909 Epilepsy, unspecified, not intractable, without status epilepticus; Z91.14 Patient's other noncompliance with medication regimen; F10.10 Alcohol abuse, uncomplicated; Y90.9 Presence of alcohol in blood, level not specified; Z59.0 Homelessness; T39.1X2A Poisoning by 4-Aminophenol derivatives, intentional self-harm, initial encounter; Y92.89 Other specified places as the place of occurrence of the external cause; I45.6 Pre-excitation syndrome; Z87.891 Personal history of nicotine dependence; F12.90 Cannabis use, unspecified, uncomplicated; Z20.822 Contact with and (suspected) exposure to COVID-19
CPT/HCPCS: 87426; 93005; 99291; G0480; G0481; Q0162

== ENCOUNTER 2020-11-21 10:12 | Inpatient (IN) | payer MEDICAID ==
[~2020-11-21] VITALS: Ht 195.6 cm; Wt 73.7 kg
[~2020-11-21 10:12] MED LIST changes: +ESCI20TA87 PO; +TRAZ-257 PO
[2020-11-21] MEDS ORDERED: THIAMINE 100 MG TABLET PO ONE (11:15)
[2020-11-21] MEDS ORDERED: FOLIC ACID 1 MG TABLET PO ONE (11:15)
[2020-11-21 11:21] LABS: BASOPHILS % (AUTO) 0.4 % (0.0-2.0); EOSINOPHILS % (AUTO) 0 % (1.0-6.0); HEMATOCRIT 46.8 % (41-53); HEMOGLOBIN 16.1 g/dL (13.5-17.5); LYMPHOCYTES # (AUTO) 1.2 K/uL (1.0-4.8); LYMPHOCYTES % (AUTO) 13.2 % (22.0-44.0); MEAN CORPUSCULAR HEMOGLOBIN 32.7 pg (26.0-34.0); MEAN CORPUSCULAR HGB CONC 34.4 G/dL (31.0-37.0); MEAN CORPUSCULAR VOLUME 95 fL (80-100); MONOCYTES # (AUTO) 0.6 K/uL (0.1-1.0); MONOCYTES % (AUTO) 6.3 % (2.0-9.0); NEUTROPHILS # (AUTO) 7.5 K/uL (1.8-7.7); NEUTROPHILS % (AUTO) 80.1 % (40.0-70.0); PLATELET COUNT (AUTO) 308 K/uL (150-450); RED BLOOD CELL COUNT(AUTO) 4.93 MIL/uL (4.50-5.90); RED CELL DISTRIBUTION WIDTH 13.8 % (11.5-14.5)
[2020-11-21 11:33] LABS: ANION GAP 9 mmol/L (8-16); CALCIUM, TOTAL 7.6 mg/dL (8.8-10.5); CARBON DIOXIDE 32 mmol/L (22-29); CHLORIDE 103 mmol/L (98-107); CREATININE 0.82 mg/dL (0.60-1.30); GLOMERULAR FILTR. RATE CALC > 60 mL/min (>60); GLUCOSE,RANDOM 122 mg/dL (70-110); POTASSIUM 3.3 mmol/L (3.5-5.1); SODIUM SERUM 144 mmol/L (136-145); UREA NITROGEN, BLOOD 3 mg/dL (7-18)
[2020-11-21 11:36] LABS: ALANINE AMINOTRANSFERASE 35 U/L (12-78); ALBUMIN 3.9 g/dL (3.4-5.0); ALKALINE PHOSPHATASE 118 U/L (46-116); ASPARTATE AMINOTRANSFERASE 31 U/L (15-37); BILIRUBIN,TOTAL 0.3 mg/dL (0.1-1.0); TOTAL PROTEIN, SERUM 7.1 g/dL (6.4-8.2)
[2020-11-21] MEDS ORDERED: ChlordiazePOXIDE HCL 25 MG CAPSULE PO ONE ×2 (15:30→16:45)
[2020-11-21] MEDS ORDERED: POTASSIUM CHLORIDE 20 MEQ ER TABLET PO ONE (17:00)
[2020-11-21] MEDS ORDERED: QUEtiapine FUMARATE 100 MG TABLET PO ONE (17:00)
[2020-11-21 17:51] LABS: COVID AG,FIA SOURCE NASOPHARYNGEAL
[2020-11-21 18:03] LABS: AMPHET/METH SCREEN,URINE NEGATIVE (NEGATIVE); BARBITURATE SCREEN, URINE POSITIVE (NEGATIVE); BENZODIAZEPINES SCREEN,URINE POSITIVE (NEGATIVE); CANNABINOID SCREEN,URINE NEGATIVE (NEGATIVE); COCAINE SCREEN,URINE NEGATIVE (NEGATIVE); METHADONE SCREEN, URINE NEGATIVE (NEGATIVE); OPIATE SCREEN,URINE NEGATIVE (NEGATIVE)
[2020-11-21 18:06] LABS: PHENCYCLIDINE SCREEN,URINE NEGATIVE (NEGATIVE)
[2020-11-21] MEDS ORDERED: HALOPERIDOL LACTATE 5 MG/ML VIAL IM ONE (19:15)
[2020-11-21] MEDS ORDERED: DiphenhydrAMINE HCL 50 MG/ML VIAL IM ONE (19:15)
[2020-11-21] MEDS ORDERED: LORazepam 2 MG/ML VIAL IM ONE (19:15)
[2020-11-21] MEDS ORDERED: ZOLPIDEM TARTRATE 10 MG TABLET PO PRN (21:15)
[2020-11-21 21:20] VITALS: BP 110/68
[2020-11-21 21:32] VITALS: BP 110/68
[2020-11-21] MEDS ORDERED: PNEUMOCOCCAL VACCINE POLYVALENT 0.5 ML VIAL [PPSV23] IM. ONE (21:45)
[2020-11-21 22:10] VITALS: BP 104/60
[2020-11-21 23:16] VITALS: BP 108/63
[2020-11-22] VITALS (8 sets, daily range): BP systolic 109–132; BP diastolic 63–82
[2020-11-22] MEDS: LORazepam 2 MG TABLET PO PRN (09:10)
[2020-11-22] MEDS: ESCITALOPRAM OXALATE 10 MG TABLET PO SCH (13:42)
[2020-11-22] MEDS: GABAPENTIN 300 MG CAPSULE PO SCH ×2 (16:40→21:06)
[2020-11-22] MEDS ORDERED: CloNIDine HCL 0.1 MG TABLET PO PRN (20:30)
[2020-11-22] MEDS ORDERED: MAGNESIUM HYDROXIDE SUSPENSION 30 ML UDCUP PO PRN (20:30)
[2020-11-22] MEDS ORDERED: ACETAMINOPHEN 325 MG TABLET PO PRN (20:30)
[2020-11-22] MEDS ORDERED: ONDANSETRON HCL 4 MG TABLET PO PRN (20:30)
[2020-11-22] MEDS ORDERED: DOCUSATE SODIUM 100 MG CAPSULE PO PRN (20:30)
[2020-11-22] MEDS ORDERED: ALBUTEROL SULFATE HFA 90 MCG/PUFF 8 GM INHALER IH PRN (20:30)
[2020-11-22] MEDS ORDERED: MAG HYDROX/AL HYDROX/SIMETH ES 30 ML SUSPENSION UDCUP PO PRN (20:30)
[2020-11-22] MEDS ORDERED: IBUPROFEN 400 MG TABLET PO PRN (20:30)
[2020-11-22] MEDS ORDERED: GuaiFENesin/D-METHORPHAN [SUGAR-FREE] 200-20MG/10 ML SYRUP UDCUP PO PRN (20:30)
[2020-11-22] MEDS ORDERED: LOPERAMIDE HCL 2 MG CAPSULE PO PRN (20:30)
[2020-11-22] MEDS ORDERED: PETROLATUM,WHITE 28 GM JELLY TP PRN (20:30)
[2020-11-22] MEDS: TraZODone HCL 50 MG TABLET PO SCH (21:06)
[2020-11-23 03:32] VITALS: BP 125/70
[2020-11-23 03:58] VITALS: BP 110/70
[2020-11-23 08:13] VITALS: BP 100/61
[2020-11-23] MEDS: GABAPENTIN 300 MG CAPSULE PO SCH ×3 (08:52→21:14)
[2020-11-23] MEDS: ATENOLOL 50 MG TABLET PO SCH (08:52)
[2020-11-23] MEDS: ESCITALOPRAM OXALATE 10 MG TABLET PO SCH (08:53)
[2020-11-23] MEDS: LORazepam 2 MG TABLET PO PRN ×3 (08:54→21:14)
[2020-11-23 09:00] VITALS: BP 100/61
[2020-11-23 16:19] VITALS: BP 116/82
[2020-11-23] MEDS: NICOTINE 14 MG/24 HOUR PATCH TD PRN (17:44)
[2020-11-23] MEDS: TraZODone HCL 50 MG TABLET PO SCH (21:14)
[2020-11-24 06:26] VITALS: BP 120/85
[2020-11-24 08:05] VITALS: BP 122/79
[2020-11-24] MEDS: GABAPENTIN 300 MG CAPSULE PO SCH ×3 (08:26→20:26)
[2020-11-24] MEDS: LORazepam 2 MG TABLET PO PRN ×3 (08:26→20:32)
[2020-11-24] MEDS: ESCITALOPRAM OXALATE 10 MG TABLET PO SCH (08:26)
[2020-11-24] MEDS: ATENOLOL 50 MG TABLET PO SCH (08:26)
[2020-11-24 16:09] VITALS: BP 107/73
[2020-11-24 16:26] VITALS: BP 107/73
[2020-11-24 16:28] VITALS: BP 107/73
[2020-11-24] MEDS: TraZODone HCL 50 MG TABLET PO SCH (20:25)
[2020-11-24] MEDS: NICOTINE 14 MG/24 HOUR PATCH TD PRN (20:25)
[2020-11-25 05:40] VITALS: BP 118/72
[2020-11-25 08:30] VITALS: BP 132/80
[2020-11-25] MEDS: GABAPENTIN 300 MG CAPSULE PO SCH ×3 (08:40→21:05)
[2020-11-25] MEDS: ATENOLOL 50 MG TABLET PO SCH (08:40)
[2020-11-25] MEDS: ESCITALOPRAM OXALATE 10 MG TABLET PO SCH (08:40)
[2020-11-25] MEDS: LORazepam 2 MG TABLET PO PRN ×2 (08:54→14:45)
[2020-11-25] MEDS: HALOPERIDOL 5 MG TABLET PO PRN (14:44)
[2020-11-25 16:17] VITALS: BP 107/75
[2020-11-25 17:02] VITALS: BP 107/75
[2020-11-25] MEDS: TraZODone HCL 50 MG TABLET PO SCH (20:50)
[2020-11-25] MEDS: NICOTINE 14 MG/24 HOUR PATCH TD PRN (21:05)
[2020-11-26 06:23] VITALS: BP 108/65
[2020-11-26 08:16] VITALS: BP 101/61
[2020-11-26] MEDS: ATENOLOL 50 MG TABLET PO SCH (08:57)
[2020-11-26] MEDS: GABAPENTIN 300 MG CAPSULE PO SCH ×3 (08:57→21:26)
[2020-11-26] MEDS: ESCITALOPRAM OXALATE 10 MG TABLET PO SCH (08:57)
[2020-11-26] MEDS: LORazepam 2 MG TABLET PO PRN ×2 (09:08→16:53)
[2020-11-26 16:34] VITALS: BP 124/77
[2020-11-26 16:36] VITALS: BP 101/61
[2020-11-26] MEDS: HALOPERIDOL 5 MG TABLET PO PRN (16:53)
[2020-11-26] MEDS: TraZODone HCL 50 MG TABLET PO SCH (21:07)
[2020-11-27 05:46] VITALS: BP 112/71
[2020-11-27] MEDS: GABAPENTIN 300 MG CAPSULE PO SCH ×2 (08:44→16:22)
[2020-11-27] MEDS: ESCITALOPRAM OXALATE 10 MG TABLET PO SCH (08:44)
[2020-11-27] MEDS: LORazepam 2 MG TABLET PO PRN ×2 (08:57→16:22)
[2020-11-27] MEDS ORDERED: TRAZ-252 PO (09:19)
[2020-11-27] MEDS ORDERED: GABA-1181 PO (09:19)
[2020-11-27] MEDS ORDERED: ESCI10 PO (09:19)
[2020-11-27] MEDS: ATENOLOL 50 MG TABLET PO SCH (10:16)
[2020-11-27 11:48] VITALS: BP 118/79
[2020-11-27 16:41] VITALS: BP 113/74
== END 2020-11-27 17:10 | disposition home or self-care (01) | DRG 751 ==
LOC: EMS 11:03 → B2S 16:34 → B3A 21:52
DX: F33.2 Major depressive disorder, recurrent severe without psychotic features (principal); F20.9 Schizophrenia, unspecified; G20 Parkinson's disease; R45.851 Suicidal ideations; B19.20 Unspecified viral hepatitis C without hepatic coma; E87.6 Hypokalemia; F12.90 Cannabis use, unspecified, uncomplicated; F10.20 Alcohol dependence, uncomplicated; Z20.822 Contact with and (suspected) exposure to COVID-19; F10.239 Alcohol dependence with withdrawal, unspecified; I45.6 Pre-excitation syndrome; R73.9 Hyperglycemia, unspecified; G40.909 Epilepsy, unspecified, not intractable, without status epilepticus; F17.210 Nicotine dependence, cigarettes, uncomplicated; I10 Essential (primary) hypertension; Z59.0 Homelessness; Z79.899 Other long term (current) drug therapy; Z91.14 Patient's other noncompliance with medication regimen
CPT/HCPCS: 80053; 84132; 85025; 87426; 93005; 99285; G0480; J1200; J1630; J2060

== ENCOUNTER 2020-11-29 10:19 | Emergency (ER) | payer MEDICAID ==
[~2020-11-29] VITALS: Ht 195.6 cm; Wt 68.2 kg
[~2020-11-29 10:19] MED LIST changes: +ESCI10 PO; -ESCI20TA87 PO; -SERT-158 PO; +TRAZ-252 PO; -TRAZ-257 PO
[2020-11-29] MEDS ORDERED: ATENOLOL 25 MG TABLET PO ONE (11:15)
[2020-11-29] MEDS ORDERED: ASPIRIN 81 MG CHEWABLE TABLET PO ONE (11:15)
[2020-11-29 11:37] LABS: COVID AG,FIA SOURCE NASOPHARYNGEAL
[2020-11-29] MEDS ORDERED: MORPHINE SULFATE 2 MG/ML SYRINGE IVP ONE (11:45)
[2020-11-29 11:47] LABS: BASOPHILS % (AUTO) 0.3 % (0.0-2.0); EOSINOPHILS % (AUTO) 0.1 % (1.0-6.0); HEMATOCRIT 46.8 % (41-53); HEMOGLOBIN 16.2 g/dL (13.5-17.5); LYMPHOCYTES # (AUTO) 0.8 K/uL (1.0-4.8); LYMPHOCYTES % (AUTO) 10.2 % (22.0-44.0); MEAN CORPUSCULAR HEMOGLOBIN 33.1 pg (26.0-34.0); MEAN CORPUSCULAR HGB CONC 34.6 G/dL (31.0-37.0); MEAN CORPUSCULAR VOLUME 96 fL (80-100); MONOCYTES # (AUTO) 0.6 K/uL (0.1-1.0); NEUTROPHILS # (AUTO) 6.8 K/uL (1.8-7.7); NEUTROPHILS % (AUTO) 82.4 % (40.0-70.0); PLATELET COUNT (AUTO) 225 K/uL (150-450); RED BLOOD CELL COUNT(AUTO) 4.89 MIL/uL (4.50-5.90); RED CELL DISTRIBUTION WIDTH 13.3 % (11.5-14.5)
[2020-11-29 11:58] LABS: ANION GAP 12 mmol/L (8-16); CALCIUM, TOTAL 9.1 mg/dL (8.8-10.5); CARBON DIOXIDE 26 mmol/L (22-29); CHLORIDE 98 mmol/L (98-107); CREATININE 0.75 mg/dL (0.60-1.30); GLOMERULAR FILTR. RATE CALC > 60 mL/min (>60); GLUCOSE,RANDOM 112 mg/dL (70-110); POTASSIUM 3.7 mmol/L (3.5-5.1); SODIUM SERUM 136 mmol/L (136-145); UREA NITROGEN, BLOOD 10 mg/dL (7-18)
[2020-11-29 12:02] LABS: INR 1.1 (0.9-1.1); PROTHROMBIN TIME 11.4 SEC (9.4-11.6)
[2020-11-29 12:03] LABS: ALANINE AMINOTRANSFERASE 41 U/L (12-78); ALBUMIN 4.4 g/dL (3.4-5.0); ALKALINE PHOSPHATASE 106 U/L (46-116); ASPARTATE AMINOTRANSFERASE 18 U/L (15-37); BILIRUBIN,TOTAL 0.5 mg/dL (0.1-1.0); LIPASE 142 U/L (73-393)
[2020-11-29 12:14] LABS: B-TYPE NATRIURETIC PEPTIDE 6 pg/mL (0-100)
[2020-11-29] MEDS ORDERED: OxyCODONE HCL/ACETAMINOPHEN 5-325 MG TABLET PO ONE (12:45)
[2020-11-29 14:25] VITALS: BP 132/88
== END 2020-11-29 14:28 | disposition home or self-care (01) ==
LOC: EMS 10:23
DX: R07.9 Chest pain, unspecified (principal); I45.6 Pre-excitation syndrome; F32.9 Major depressive disorder, single episode, unspecified; I10 Essential (primary) hypertension; F12.90 Cannabis use, unspecified, uncomplicated; F16.90 Hallucinogen use, unspecified, uncomplicated; F17.210 Nicotine dependence, cigarettes, uncomplicated; Z79.899 Other long term (current) drug therapy; Z20.822 Contact with and (suspected) exposure to COVID-19
CPT/HCPCS: 36415; 71045; 80053; 83690; 83880; 84484; 85025; 85610; 87426; 93005; 96374; 99285; J2270

== ENCOUNTER 2020-11-30 19:10 | Inpatient (IN) | payer MEDICAID ==
[~2020-11-30] VITALS: Ht 195.6 cm; Wt 74.3 kg
[2020-11-30 20:01] LABS: BASOPHILS % (AUTO) 0.4 % (0.0-2.0); EOSINOPHILS % (AUTO) 0.3 % (1.0-6.0); HEMATOCRIT 43.2 % (41-53); HEMOGLOBIN 14.9 g/dL (13.5-17.5); LYMPHOCYTES # (AUTO) 1.9 K/uL (1.0-4.8); LYMPHOCYTES % (AUTO) 24.1 % (22.0-44.0); MEAN CORPUSCULAR HEMOGLOBIN 33.2 pg (26.0-34.0); MEAN CORPUSCULAR HGB CONC 34.4 G/dL (31.0-37.0); MEAN CORPUSCULAR VOLUME 97 fL (80-100); MONOCYTES # (AUTO) 0.9 K/uL (0.1-1.0); MONOCYTES % (AUTO) 10.9 % (2.0-9.0); NEUTROPHILS # (AUTO) 5.2 K/uL (1.8-7.7); NEUTROPHILS % (AUTO) 64.3 % (40.0-70.0); PLATELET COUNT (AUTO) 221 K/uL (150-450); RED BLOOD CELL COUNT(AUTO) 4.47 MIL/uL (4.50-5.90); RED CELL DISTRIBUTION WIDTH 13.8 % (11.5-14.5)
[2020-11-30 20:09] LABS: ANION GAP 12 mmol/L (8-16); CALCIUM, TOTAL 8.6 mg/dL (8.8-10.5); CARBON DIOXIDE 28 mmol/L (22-29); CHLORIDE 101 mmol/L (98-107); CREATININE 0.73 mg/dL (0.60-1.30); GLOMERULAR FILTR. RATE CALC > 60 mL/min (>60); GLUCOSE,RANDOM 103 mg/dL (70-110); POTASSIUM 3.5 mmol/L (3.5-5.1); SODIUM SERUM 141 mmol/L (136-145); UREA NITROGEN, BLOOD 9 mg/dL (7-18)
[2020-11-30 20:12] LABS: ALANINE AMINOTRANSFERASE 33 U/L (12-78); ALBUMIN 3.9 g/dL (3.4-5.0); ALKALINE PHOSPHATASE 95 U/L (46-116); ASPARTATE AMINOTRANSFERASE 14 U/L (15-37); BILIRUBIN,TOTAL 0.3 mg/dL (0.1-1.0); TOTAL PROTEIN, SERUM 7.1 g/dL (6.4-8.2)
[2020-11-30 20:17] LABS: AMPHET/METH SCREEN,URINE NEGATIVE (NEGATIVE); BARBITURATE SCREEN, URINE NEGATIVE (NEGATIVE); BENZODIAZEPINES SCREEN,URINE NEGATIVE (NEGATIVE); CANNABINOID SCREEN,URINE NEGATIVE (NEGATIVE); COCAINE SCREEN,URINE NEGATIVE (NEGATIVE); METHADONE SCREEN, URINE NEGATIVE (NEGATIVE); OPIATE SCREEN,URINE NEGATIVE (NEGATIVE); PHENCYCLIDINE SCREEN,URINE NEGATIVE (NEGATIVE)
[2020-11-30 21:07] LABS: COVID AG,FIA SOURCE NASAL SWAB
[2020-12-01 00:38] VITALS: BP 114/65
[2020-12-01] MEDS ORDERED: PNEUMOCOCCAL VACCINE POLYVALENT 0.5 ML VIAL [PPSV23] IM. ONE (00:45)
[2020-12-01 05:55] VITALS: BP 120/88
[2020-12-01] MEDS: LORazepam 2 MG TABLET PO PRN ×2 (06:02→11:51)
[2020-12-01 08:16] LABS: CHOL/HDL RATIO 3.3 (4.2-7.3)
[2020-12-01 08:31] VITALS: BP 116/80
[2020-12-01] MEDS: ESCITALOPRAM OXALATE 10 MG TABLET PO SCH (09:59)
[2020-12-01] MEDS: GABAPENTIN 300 MG CAPSULE PO SCH ×3 (09:59→20:09)
[2020-12-01 16:09] VITALS: BP 111/77
[2020-12-01] MEDS ORDERED: ATEN-72 PO (16:57)
[2020-12-01] MEDS ORDERED: MAGNESIUM HYDROXIDE SUSPENSION 30 ML UDCUP PO PRN (17:00)
[2020-12-01] MEDS ORDERED: PETROLATUM,WHITE 28 GM JELLY TP PRN (17:00)
[2020-12-01] MEDS ORDERED: DOCUSATE SODIUM 100 MG CAPSULE PO PRN (17:00)
[2020-12-01] MEDS ORDERED: ONDANSETRON HCL 4 MG TABLET PO PRN (17:00)
[2020-12-01] MEDS ORDERED: CloNIDine HCL 0.1 MG TABLET PO PRN (17:00)
[2020-12-01] MEDS ORDERED: MAG HYDROX/AL HYDROX/SIMETH ES 30 ML SUSPENSION UDCUP PO PRN (17:00)
[2020-12-01] MEDS ORDERED: LOPERAMIDE HCL 2 MG CAPSULE PO PRN (17:00)
[2020-12-01] MEDS ORDERED: GuaiFENesin/D-METHORPHAN [SUGAR-FREE] 200-20MG/10 ML SYRUP UDCUP PO PRN (17:00)
[2020-12-01] MEDS ORDERED: ALBUTEROL SULFATE HFA 90 MCG/PUFF 8 GM INHALER IH PRN (17:00)
[2020-12-01] MEDS ORDERED: ACETAMINOPHEN 325 MG TABLET PO PRN (17:00)
[2020-12-01] MEDS: TraZODone HCL 50 MG TABLET PO SCH (20:09)
[2020-12-02 03:41] VITALS: BP 126/76
[2020-12-02] MEDS: LORazepam 2 MG TABLET PO PRN ×2 (07:50→13:26)
[2020-12-02] MEDS: ESCITALOPRAM OXALATE 10 MG TABLET PO SCH (08:06)
[2020-12-02] MEDS: GABAPENTIN 300 MG CAPSULE PO SCH ×3 (08:06→20:18)
[2020-12-02 08:26] VITALS: BP 117/89
[2020-12-02 16:05] VITALS: BP 122/73
[2020-12-02] MEDS: TraZODone HCL 50 MG TABLET PO SCH (20:18)
[2020-12-03 00:36] VITALS: BP 137/75
[2020-12-03] MEDS: GABAPENTIN 300 MG CAPSULE PO SCH ×3 (08:02→20:07)
[2020-12-03] MEDS: LORazepam 2 MG TABLET PO PRN ×2 (08:03→14:40)
[2020-12-03] MEDS: ESCITALOPRAM OXALATE 10 MG TABLET PO SCH (08:03)
[2020-12-03 08:06] VITALS: BP 125/81
[2020-12-03 16:08] VITALS: BP 112/78
[2020-12-03] MEDS: TraZODone HCL 50 MG TABLET PO SCH (20:07)
[2020-12-04 00:10] VITALS: BP 121/80
[2020-12-04] MEDS: GABAPENTIN 300 MG CAPSULE PO SCH ×3 (08:05→20:08)
[2020-12-04] MEDS: LORazepam 2 MG TABLET PO PRN ×2 (08:05→16:51)
[2020-12-04] MEDS: ESCITALOPRAM OXALATE 10 MG TABLET PO SCH (08:05)
[2020-12-04 08:15] VITALS: BP 107/76
[2020-12-04] MEDS: QUEtiapine FUMARATE 100 MG TABLET PO PRN (08:40)
[2020-12-04] MEDS: NICOTINE 14 MG/24 HOUR PATCH TD PRN (08:41)
[2020-12-04 16:27] VITALS: BP 122/77
[2020-12-04] MEDS: TraZODone HCL 50 MG TABLET PO SCH (20:08)
[2020-12-04] MEDS: ATENOLOL 25 MG TABLET PO SCH (20:08)
[2020-12-05 01:21] VITALS: BP 119/68
[2020-12-05 06:00] VITALS: BP 112/72
[2020-12-05] MEDS: LORazepam 2 MG TABLET PO PRN ×2 (06:30→16:59)
[2020-12-05] MEDS: GABAPENTIN 300 MG CAPSULE PO SCH ×3 (08:14→19:49)
[2020-12-05] MEDS: ESCITALOPRAM OXALATE 10 MG TABLET PO SCH (08:14)
[2020-12-05 08:16] VITALS: BP 118/70
[2020-12-05] MEDS: QUEtiapine FUMARATE 100 MG TABLET PO PRN ×2 (11:04→20:03)
[2020-12-05] MEDS: NICOTINE 14 MG/24 HOUR PATCH TD PRN (11:32)
[2020-12-05 16:07] VITALS: BP 122/87
[2020-12-05] MEDS: TraZODone HCL 50 MG TABLET PO SCH (19:49)
[2020-12-05] MEDS: ATENOLOL 25 MG TABLET PO SCH (19:49)
[2020-12-06 00:57] VITALS: BP 102/63
[2020-12-06 07:46] LABS: COVID AG,FIA SOURCE NASOPHARYNGEAL
[2020-12-06 08:05] VITALS: BP 108/65
[2020-12-06] MEDS: ESCITALOPRAM OXALATE 10 MG TABLET PO SCH (08:12)
[2020-12-06] MEDS: GABAPENTIN 300 MG CAPSULE PO SCH ×3 (08:12→20:06)
[2020-12-06] MEDS: LORazepam 2 MG TABLET PO PRN (08:18)
[2020-12-06] MEDS: QUEtiapine FUMARATE 100 MG TABLET PO PRN (12:52)
[2020-12-06 16:05] VITALS: BP 104/64
[2020-12-06] MEDS: NICOTINE 14 MG/24 HOUR PATCH TD PRN (17:27)
[2020-12-06] MEDS: ATENOLOL 25 MG TABLET PO SCH (20:06)
[2020-12-06] MEDS: TraZODone HCL 50 MG TABLET PO SCH (20:06)
[2020-12-07] MEDS: QUEtiapine FUMARATE 100 MG TABLET PO PRN (05:12)
[2020-12-07 05:33] VITALS: BP 109/79
[2020-12-07] MEDS: GABAPENTIN 300 MG CAPSULE PO SCH ×3 (08:15→20:26)
[2020-12-07] MEDS: ESCITALOPRAM OXALATE 10 MG TABLET PO SCH (08:15)
[2020-12-07] MEDS: FOLIC ACID 1 MG TABLET PO SCH (08:15)
[2020-12-07] MEDS: THIAMINE 100 MG TABLET PO SCH (08:15)
[2020-12-07] MEDS: MULTIVITAMINS WITH MINERALS, THERAPEUTIC TABLET PO SCH (08:15)
[2020-12-07 09:19] VITALS: BP 111/60
[2020-12-07] MEDS: LORazepam 2 MG TABLET PO PRN (09:40)
[2020-12-07 16:09] VITALS: BP 107/70
[2020-12-07] MEDS: ATENOLOL 25 MG TABLET PO SCH (20:26)
[2020-12-07] MEDS: TraZODone HCL 50 MG TABLET PO SCH (20:26)
[2020-12-08 05:53] VITALS: BP 104/65
[2020-12-08 08:16] VITALS: BP 119/71
[2020-12-08] MEDS: MULTIVITAMINS WITH MINERALS, THERAPEUTIC TABLET PO SCH (08:50)
[2020-12-08] MEDS: GABAPENTIN 300 MG CAPSULE PO SCH ×3 (08:50→20:29)
[2020-12-08] MEDS: THIAMINE 100 MG TABLET PO SCH (08:50)
[2020-12-08] MEDS: ESCITALOPRAM OXALATE 10 MG TABLET PO SCH (08:50)
[2020-12-08] MEDS: FOLIC ACID 1 MG TABLET PO SCH (08:50)
[2020-12-08] MEDS: LORazepam 2 MG TABLET PO PRN (09:01)
[2020-12-08] MEDS ORDERED: LORazepam 1 MG TABLET PO PRN (09:15)
[2020-12-08] MEDS ORDERED: LORazepam 2 MG TABLET PO PRN (11:45)
[2020-12-08] MEDS: NICOTINE 14 MG/24 HOUR PATCH TD PRN (16:23)
[2020-12-08 16:24] VITALS: BP 115/68
[2020-12-08] MEDS: TraZODone HCL 50 MG TABLET PO SCH (20:29)
[2020-12-08] MEDS: ATENOLOL 25 MG TABLET PO SCH (20:29)
[2020-12-08] MEDS: QUEtiapine FUMARATE 100 MG TABLET PO PRN (20:32)
[2020-12-09 06:43] VITALS: BP 101/60
[2020-12-09 08:36] VITALS: BP 104/72
[2020-12-09] MEDS: ESCITALOPRAM OXALATE 20 MG TABLET PO SCH (08:41)
[2020-12-09] MEDS: FOLIC ACID 1 MG TABLET PO SCH (08:41)
[2020-12-09] MEDS: THIAMINE 100 MG TABLET PO SCH (08:41)
[2020-12-09] MEDS: MULTIVITAMINS WITH MINERALS, THERAPEUTIC TABLET PO SCH (08:41)
[2020-12-09] MEDS: QUEtiapine FUMARATE 100 MG TABLET PO PRN (08:42)
[2020-12-09] MEDS: GABAPENTIN 300 MG CAPSULE PO SCH ×3 (08:42→20:06)
[2020-12-09 16:05] VITALS: BP 115/66
[2020-12-09] MEDS: NICOTINE 14 MG/24 HOUR PATCH TD PRN (16:12)
[2020-12-09] MEDS: TraZODone HCL 50 MG TABLET PO SCH (20:05)
[2020-12-09] MEDS: ATENOLOL 25 MG TABLET PO SCH (20:05)
[2020-12-09 20:06] VITALS: BP 116/76
[2020-12-10 01:03] VITALS: BP 110/62
[2020-12-10] MEDS: FOLIC ACID 1 MG TABLET PO SCH (08:22)
[2020-12-10] MEDS: ESCITALOPRAM OXALATE 20 MG TABLET PO SCH (08:22)
[2020-12-10] MEDS: MULTIVITAMINS WITH MINERALS, THERAPEUTIC TABLET PO SCH (08:22)
[2020-12-10] MEDS: GABAPENTIN 300 MG CAPSULE PO SCH ×3 (08:22→21:25)
[2020-12-10] MEDS: THIAMINE 100 MG TABLET PO SCH (08:22)
[2020-12-10 08:26] VITALS: BP 108/66
[2020-12-10] MEDS: QUEtiapine FUMARATE 100 MG TABLET PO PRN (13:54)
[2020-12-10 15:00] VITALS: BP 122/75
[2020-12-10 21:23] VITALS: BP 118/78
[2020-12-10] MEDS: TraZODone HCL 50 MG TABLET PO SCH (21:25)
[2020-12-10] MEDS: ATENOLOL 25 MG TABLET PO SCH (21:25)
[2020-12-11 01:40] VITALS: BP 110/66
[2020-12-11] MEDS: THIAMINE 100 MG TABLET PO SCH (07:54)
[2020-12-11] MEDS: MULTIVITAMINS WITH MINERALS, THERAPEUTIC TABLET PO SCH (07:54)
[2020-12-11] MEDS: ESCITALOPRAM OXALATE 20 MG TABLET PO SCH (07:54)
[2020-12-11] MEDS: FOLIC ACID 1 MG TABLET PO SCH (07:55)
[2020-12-11] MEDS: GABAPENTIN 300 MG CAPSULE PO SCH ×3 (07:55→20:15)
[2020-12-11 08:17] VITALS: BP 107/61
[2020-12-11 16:05] VITALS: BP 113/69
[2020-12-11] MEDS: TraZODone HCL 50 MG TABLET PO SCH (20:15)
[2020-12-11] MEDS: ATENOLOL 25 MG TABLET PO SCH (20:15)
[2020-12-12 06:04] VITALS: BP 100/60
[2020-12-12] MEDS: FOLIC ACID 1 MG TABLET PO SCH (08:08)
[2020-12-12] MEDS: GABAPENTIN 300 MG CAPSULE PO SCH ×3 (08:08→20:13)
[2020-12-12] MEDS: ESCITALOPRAM OXALATE 20 MG TABLET PO SCH (08:08)
[2020-12-12] MEDS: THIAMINE 100 MG TABLET PO SCH (08:08)
[2020-12-12] MEDS: MULTIVITAMINS WITH MINERALS, THERAPEUTIC TABLET PO SCH (08:08)
[2020-12-12 08:10] VITALS: BP 107/61
[2020-12-12] MEDS: QUEtiapine FUMARATE 100 MG TABLET PO PRN (09:02)
[2020-12-12] MEDS: NICOTINE POLACRILEX 2 MG LOZENGE PO PRN ×2 (09:02→16:19)
[2020-12-12 16:19] VITALS: BP 117/72
[2020-12-12 20:10] VITALS: BP 128/79
[2020-12-12] MEDS: ATENOLOL 25 MG TABLET PO SCH (20:13)
[2020-12-12] MEDS: TraZODone HCL 50 MG TABLET PO SCH (20:13)
[2020-12-13 00:38] VITALS: BP 109/62
[2020-12-13] MEDS: QUEtiapine FUMARATE 100 MG TABLET PO PRN (05:38)
[2020-12-13 08:20] VITALS: BP 95/54
[2020-12-13] MEDS: GABAPENTIN 300 MG CAPSULE PO SCH ×3 (08:23→20:17)
[2020-12-13] MEDS: THIAMINE 100 MG TABLET PO SCH (08:23)
[2020-12-13] MEDS: MULTIVITAMINS WITH MINERALS, THERAPEUTIC TABLET PO SCH (08:23)
[2020-12-13] MEDS: FOLIC ACID 1 MG TABLET PO SCH (08:23)
[2020-12-13] MEDS: ESCITALOPRAM OXALATE 20 MG TABLET PO SCH (08:23)
[2020-12-13 08:37] LABS: COVID AG,FIA SOURCE NASOPHARYNGEAL
[2020-12-13 16:08] VITALS: BP 113/66
[2020-12-13] MEDS: TraZODone HCL 50 MG TABLET PO SCH (20:17)
[2020-12-13] MEDS: ATENOLOL 25 MG TABLET PO SCH (20:17)
[2020-12-14] VITALS: BP 98/68
[2020-12-14] MEDS ORDERED: GABA-1181 PO (08:30)
[2020-12-14] MEDS ORDERED: ESCI20TA87 PO (08:32)
[2020-12-14] MEDS ORDERED: ATEN-73 PO (08:33)
[2020-12-14] MEDS: MULTIVITAMINS WITH MINERALS, THERAPEUTIC TABLET PO SCH (08:47)
[2020-12-14] MEDS: GABAPENTIN 300 MG CAPSULE PO SCH (08:47)
[2020-12-14] MEDS: ESCITALOPRAM OXALATE 20 MG TABLET PO SCH (08:47)
[2020-12-14] MEDS: FOLIC ACID 1 MG TABLET PO SCH (08:47)
[2020-12-14] MEDS: THIAMINE 100 MG TABLET PO SCH (08:47)
[2020-12-14 09:02] VITALS: BP 108/67
== END 2020-12-14 13:46 | disposition home or self-care (01) | DRG 751 ==
LOC: EMS 19:15 → B2S 20:47
DX: F33.2 Major depressive disorder, recurrent severe without psychotic features (principal); E44.0 Moderate protein-calorie malnutrition; R45.851 Suicidal ideations; K73.9 Chronic hepatitis, unspecified; G40.909 Epilepsy, unspecified, not intractable, without status epilepticus; Z59.0 Homelessness; I10 Essential (primary) hypertension; Z88.8 Allergy status to other drugs, medicaments and biological substances; F10.10 Alcohol abuse, uncomplicated; Y90.9 Presence of alcohol in blood, level not specified; Z68.1 Body mass index [BMI] 19.9 or less, adult; I45.6 Pre-excitation syndrome; F12.90 Cannabis use, unspecified, uncomplicated; F17.210 Nicotine dependence, cigarettes, uncomplicated; F41.9 Anxiety disorder, unspecified; I25.2 Old myocardial infarction; Z79.899 Other long term (current) drug therapy; Z20.822 Contact with and (suspected) exposure to COVID-19; Z28.21 Immunization not carried out because of patient refusal
CPT/HCPCS: 80053; 80061; 85025; 87081; 87426; 99285; A9575; G0480; J3535